=== PATIENT | female | born 1960 | race Caucasian/White ===

== ENCOUNTER 2017-06-02 08:26 | Outpatient (CLI) | payer OTHER ==
[~2017-06-02 08:26] MED LIST: CELEBREX100 MG PO; MEDROL4 MG PO; SKELAXIN800 MG PO; SYNTHROID75 MCG
== END 2017-06-02 08:35 | disposition home or self-care (01) ==
LOC: MAMO-SONO 08:26
DX: Z12.31 Encounter for screening mammogram for malignant neoplasm of breast (principal); N64.4 Mastodynia

== ENCOUNTER 2017-09-12 14:44 | Emergency (ER) | payer OTHER ==
[~2017-09-12] VITALS: Ht 180.3 cm; Wt 61.2 kg
[2017-09-12] MEDS ORDERED: CRESTOR10 MG PO (15:14)
== END 2017-09-12 18:21 | disposition home or self-care (01) ==
LOC: ER 14:44
DX: L03.031 Cellulitis of right toe (principal)

== ENCOUNTER 2018-06-16 12:56 | Outpatient (CLI) | payer OTHER ==
[~2018-06-16 12:56] MED LIST changes: +CRESTOR10 MG PO
== END 2018-06-16 13:13 | disposition home or self-care (01) ==
LOC: MAMO-SONO 12:56
DX: Z12.31 Encounter for screening mammogram for malignant neoplasm of breast (principal)

== ENCOUNTER 2018-07-21 11:37 | Outpatient (CLI) | payer OTHER | END 2018-07-21 16:48 | disposition home or self-care (01) | LOC: RAD 11:37 | DX: M20.41 Other hammer toe(s) (acquired), right foot (principal); M20.42 Other hammer toe(s) (acquired), left foot ==

== ENCOUNTER 2018-10-19 12:20 | Outpatient (CLI) | payer OTHER | END 2018-10-19 15:37 | disposition home or self-care (01) | LOC: RAD 12:20 | DX: M79.672 Pain in left foot (principal) ==

== ENCOUNTER 2018-12-29 13:53 | Outpatient (CLI) | payer OTHER | END 2018-12-29 13:59 | disposition home or self-care (01) | LOC: RAD 13:53 | DX: R91.1 Solitary pulmonary nodule (principal) ==

== ENCOUNTER 2019-06-27 12:40 | Outpatient (CLI) | payer OTHER | END 2019-06-27 13:00 | disposition home or self-care (01) | LOC: MAMO-SONO 12:40 | DX: Z12.31 Encounter for screening mammogram for malignant neoplasm of breast (principal); Z87.898 Personal history of other specified conditions; Z80.3 Family history of malignant neoplasm of breast; N64.4 Mastodynia; N60.01 Solitary cyst of right breast; N60.02 Solitary cyst of left breast ==

== ENCOUNTER 2019-12-27 09:49 | Outpatient (CLI) | payer OTHER | END 2019-12-27 10:22 | disposition home or self-care (01) | LOC: SONOGRAMA 09:49 → MAMO-SONO 11:15 | PROVIDERS: ATTEND Internal Medicine Rheumatology | DX: R92.8 Other abnormal and inconclusive findings on diagnostic imaging of breast (principal) ==